=== PATIENT | male | born 1950 | race Native Hawaiian/Other Pacific Islander ===

== ENCOUNTER → 2019-10-26 | Outpatient (CLI) | payer MEDICARE, OTHER | LOC: GMA MATASK 11:31 | PROVIDERS: ATTEND Family Medicine | DX: E03.9 Hypothyroidism, unspecified (principal); E11.9 Type 2 diabetes mellitus without complications ==

== ENCOUNTER → 2020-05-29 | Outpatient (CLI) | payer MEDICARE, OTHER | LOC: GMA MATASK 11:43 | PROVIDERS: ATTEND Family Medicine | DX: Z12.5 Encounter for screening for malignant neoplasm of prostate (principal); E03.9 Hypothyroidism, unspecified; E78.2 Mixed hyperlipidemia; E11.9 Type 2 diabetes mellitus without complications | CPT/HCPCS: 84443; 84550; G0103 ==

== ENCOUNTER → 2020-12-04 | Outpatient (CLI) | payer MEDICARE, OTHER | LOC: GMAM 16:28 | PROVIDERS: ATTEND Family Medicine | DX: E03.9 Hypothyroidism, unspecified (principal); E11.9 Type 2 diabetes mellitus without complications; E78.2 Mixed hyperlipidemia ==